=== PATIENT | female | born 1995 | race African-American/Black ===

== ENCOUNTER 2019-11-19 19:48 | Emergency (ER) | payer MEDICAID ==
[~2019-11-19] VITALS: Ht 157.5 cm; Wt 60.0 kg
[2019-11-19 19:53] VITALS: BP 109/54
[2019-11-19] MEDS ORDERED: DIPHENHYDRAMINE 25MG CAPSULE PO ONE (20:30)
== END 2019-11-19 20:45 | disposition home or self-care (01) ==
LOC: ER 19:48
DX: T78.49XA Other allergy, initial encounter (principal); X58.XXXA Exposure to other specified factors, initial encounter
CPT/HCPCS: 99282; Q0163